=== PATIENT | male | born 1955 | race Caucasian/White ===

== ENCOUNTER → 2017-03-16 | Outpatient (CLI) | payer BC ==
[~2017-03-16] MED LIST: AMLO10 PO; ATEN50TA PO; CALC600T25 PO; DOCU1CAP39 PO; HYDR-3516 PO; HYDR10TA65 PO; LIPI80TA PO; LISI10TA3 PO; LISI40TA PO; MAGN400T24 PO; METH500T3 PO; NEXI40CA PO
[2017-03-16 09:08] LABS: HEMATOCRIT 38.4 % (39.0-51.0); MEAN CELL VOLUME 89.1 FL (80.0-100.0); MEAN CORPUSCULAR HEMOGLOBIN 30.5 PG (27.0-34.0); MEAN CORPUSCULAR HGB CONC 34.2 % (32.0-36.0); PLATELET COUNT 274 TH/MM3 (150-450); RED BLOOD COUNT 4.31 MIL/MM3 (4.50-5.90); RED CELL DISTRIBUTION WIDTH 13.4 % (11.6-17.2); REVIEW FLAG FINAL
[2017-03-16 09:19] LABS: APTT (PATIENT) 26.4 SEC (24.3-30.1)
[2017-03-16 10:04] LABS: BICARBONATE 26.6 MEQ/L (21.0-32.0)
--- NOTE | 2017-03-16 21:16 | EKG ---
Date Performed: 03/16/2017 Time Performed: 08:25:15 PTAGE: 62 years EKG: Sinus rhythm POSSIBLE RIGHT VENTRICULAR CONDUCTION DELAY BORDERLINE ECG NO PREVIOUS TRACING DOCTOR: Anam Luz Interpretating Date/Time 03/16/2017 21:16:17
== END ==
LOC: CPRE 07:58
PROVIDERS: ATTEND Neurological Surgery
DX: Z01.810 Encounter for preprocedural cardiovascular examination (principal); Z01.811 Encounter for preprocedural respiratory examination; Z01.812 Encounter for preprocedural laboratory examination; Z01.818 Encounter for other preprocedural examination; M48.062 Spinal stenosis, lumbar region with neurogenic claudication; M54.16 Radiculopathy, lumbar region; R94.31 Abnormal electrocardiogram [ECG] [EKG]
CPT/HCPCS: 36415; 80048; 85027; 85610; 85730; 93005

== ENCOUNTER 2017-03-19 08:07 | Inpatient (IN) | payer BC ==
[~2017-03-19] VITALS: Ht 177.8 cm; Wt 95.1 kg
[~2017-03-19 08:07] MED LIST changes: -CALC600T25 PO; -DOCU1CAP39 PO; -HYDR-3516 PO; -LISI10TA3 PO; -MAGN400T24 PO; -METH500T3 PO
[2017-03-19] MEDS ORDERED: CHLORHEXIDINE GLUCONATE 2 % 1 PACK (2 CLOTHS) TOPICAL PRN (09:45)
[2017-03-19] MEDS ORDERED: LACTATED RINGER'S 1000 ML IV PRN (09:45)
[2017-03-19] MEDS ORDERED: ceFAZolin 1,000 MG/NS 100 ML IV SCH ×2 (09:45)
[2017-03-19] MEDS ORDERED: SODIUM CHLORID 0.9% 500 ML IV PRN (09:45)
[2017-03-19] MEDS ORDERED: METOPROLOL TARTRATE 25 MG TAB PO PRN (09:45)
[2017-03-19] MEDS ORDERED: INSULIN HUMAN REGULAR 1,000 UNITS/10 ML VIAL SQ PRN (09:45)
[2017-03-19] MEDS ORDERED: POVIDONE IODINE 5% (ANTISEPSIS KIT) 4 APPLICATIONS EACH NARE PRN (09:45)
[2017-03-19] MEDS ORDERED: THROMBIN (TOPICAL) 5,000 UNIT VIAL ONE (10:15)
[2017-03-19] MEDS ORDERED: GELFOAM SIZE 100 ONE (10:15)
[2017-03-19] MEDS ORDERED: LIDOCAINE 2%/EPINEPHrine PF 1:200,000 20ML SDV ONE (10:16)
[2017-03-19] MEDS ORDERED: GENTAMICIN SULFATE 80 MG/2 ML VIAL ONE (10:16)
[2017-03-19] MEDS ORDERED: ACETAMINOPHEN 1000 MG/100 ML 100 ML IV ONE (14:01)
[2017-03-19] MEDS ORDERED: MIDAZOLAM HCL 2 MG/2 ML VIAL ONE (14:02)
[2017-03-19] MEDS ORDERED: methylPREDNISolone SOD SUCC 125 MG/2 ML VIAL ONE (14:03)
[2017-03-19] MEDS ORDERED: FAMOTIDINE 20 MG/2 ML VIAL ONE (14:03)
[2017-03-19] MEDS ORDERED: BUPIVACAINE LIPOSOME PF 1.3% 20 ML VIAL ONE (17:05)
[2017-03-19] MEDS ORDERED: ceFAZolin INJ 1,000 MG VIAL ONE (18:12)
[2017-03-19] MEDS ORDERED: DO NOT ADM ANY ANTICOAGULANT DRUGS PRN (19:38)
--- NOTE | 2017-03-19 19:50 | RADRPT ---
EXAM DATE/TIME: 03/19/2017 15:26 [place] COMPARISON: No previous studies available for comparison. INDICATIONS : Lumbar spine pain Post laminectomy L3-L4 MEDICAL HISTORY : None. SURGICAL HISTORY : None. ENCOUNTER: Initial ACUITY: 1 day PAIN SCORE: Non-responsive. LOCATION: Lumbar spine FINDINGS: Localization marker correlates with what I believe is L4-5.. Visualized lower lumbar spine alignment is satisfactory. CONCLUSION: Localization marker dorsal to L4-5 Gera Peterson MD on March 19, 2017 at 19:47 Board Certified Radiologist. This report was verified electronically.
[2017-03-19 20:00] VITALS: BP 117/78; PULSE 64; RESP 16; TEMP 96.4; O2SAT 94
[2017-03-19] MEDS ORDERED: SODIUM CHLORIDE 0.9% FLUSH 5 ML FLUSH IVF PRN (20:45)
[2017-03-19] MEDS ORDERED: METHOCARBAMOL 500 MG TAB PO PRN (20:45)
[2017-03-19] MEDS ORDERED: NALOXONE HCL 0.4 MG/ML AMP IV PUSH PRN (20:45)
[2017-03-19] MEDS ORDERED: HYDROmorphone HCL PF 1 MG/ML VIAL IV PUSH PRN (20:45)
[2017-03-19] MEDS ORDERED: ACETAMINOPHEN/HYDROcodone 325 MG/10 MG TAB PO PRN (20:45)
[2017-03-19] MEDS ORDERED: ONDANSETRON HCL 4 MG/2 ML VIAL IV PUSH PRN (20:45)
[2017-03-19] MEDS: D5-1/2 NS + KCL 20 MEQ INJ 1,000 ML IV SCH (20:45)
[2017-03-19] MEDS ORDERED: MORPHINE SULFATE 4 MG/ML INJ IV PUSH PRN (20:45)
[2017-03-19] MEDS: DOCUSATE SODIUM 100 MG CAP PO SCH (21:00)
--- NOTE | 2017-03-19 21:09 | PD.OP ---
Operative Report Date of Surgery: Mar 19, 2017 Preoperative Diagnosis: (1) Lumbar canal stenosis (2) Lumbar radiculopathy (3) Synovial cyst of lumbar facet joint 1. Severe L2-3, L3 4, moderate L4 5 canal stenosis 2. L3 4 synovial cyst 3. Left lumbar radiculopathy Postoperative Diagnosis: (1) Lumbar canal stenosis (2) Lumbar radiculopathy (3) Synovial cyst of lumbar facet joint 1. Severe L2-3, L3 4, moderate L4 5 canal stenosis 2. L3 4 synovial cyst 3. Left lumbar radiculopathy Procedure: 1. Bilateral L2-3 and L3 4 decompressive semi-laminectomy 2. Resection L3 4 synovial cyst 3. Left L4 5 decompressive semi-laminectomy Anesthesia: Gen. Surgeon: Yaniv Lo Sludge Filtration Operator(s): Melvi Sahni Operation and Findings: Indications: 62-year-old male with chronic low back pain, severe left lower extremity radicular pain. Preoperative MRI reveals severe L3-4 greater than L2- 3 canal and lateral recess stenosis with L3 4 synovial cyst. Moderate L4 5 canal stenosis with significant lateral recess stenosis impinging on the left L5 nerve root. Intraoperative findings: Severe hypertrophy of the L3 4 greater than L2-3 ligamentum flavum with prominent central to right L3 4 synovial cyst. Significant adhesions along the thecal sac at the bilateral L3 4 and left L4 5 level. Procedure in detail: The patient was brought into the operating room and general endotracheal anesthesia induced without difficulty. KELLIE hose and sequential compression devices were placed. The Rosales catheter was placed. Lines were established by anesthesia. Leads for intraoperative neuro monitoring were placed and a baseline study obtained. The patient was positioned on the concentric Papito table with the side bolsters and all extremities appropriately padded. Appropriate time-out procedure was performed with all personnel present and in agreement. 1% Xylocaine with epinephrine was used for local infiltration over the incision site which was made just to the left of midline at the L2-4 levels. The incision was carried sharply down to the lumbodorsal fascia which was incised adjacent to the spinous processes. Arevalo elevator was used for subperiosteal elevation of paraspinous musculature and fascia away from the lamina and spinous process at the left L 2, L3, and L4 level keeping the muscle and ligament attachments intact to the spinous processes as much as possible at each level. The deep self-retaining retractor was placed. The appropriate levels were verified with intraoperative C-arm. Microscope was moved into place and used for the remainder of the procedure including the closure. At the L2-3 and L3 4 level starting on the left side and then working across the midline to the opposite side, the TPS drill with a 5 mm bone bur followed by the 4 mm mitchel bur was used to remove the inferior two thirds of the more cephalad lamina and the superior aspect of the more caudal lamina along with a moderate amount of the bilateral medial facet, taking care not to disrupt the integrity of the facet or pars intra-articularis. The hypertrophied ligamentum flavum at each level was elevated away from the thecal sac with the thin ligament dissector and resected with the 15 blade knife and the Kerrison rongeur out to the level of the deep lateral recess to completely decompress the thecal sac and exiting nerve roots. At the L3 4 level, the ligamentum flavum was markedly hypertrophied, and the synovial cyst on the right side was elevated along with the ligament with the Poultney dissectors and thin ligament dissectors with further resection with the Kerrison rongeur to remove the synovial cyst and adjacent ligament. There were moderate adhesions noted along the thecal sac at the bilateral L3 4 level. The exiting nerve roots were followed to the level of the medial pedicle to ensure that they were well decompressed. At each level on each side, the superior aspect of the more inferior facet along with hypertrophied ligament at the medial foramen were removed with the Kerrison rongeur to perform the bilateral foraminotomy. At the left L4 5 level, in order to decompress the exiting left L5 nerve root, a left L5 laminotomy was performed with the TPS drill with the 4 mm bone bur. The hypertrophied ligamentum flavum was elevated away from the underlying thecal sac with a thin ligament dissector. There were quite severe adhesions between the ligament and the dura and at some points, a clean dissection plane could not be accomplished, so the ligament was thinned out and the facet and lamina overlying the exiting L5 nerve root removed sufficient to decompress the nerve at the lateral recess. The nerve roots appeared well decompressed at the end of the procedure. No spinal fluid leakage was encountered. The disc and annulus at the L2-3 and L3 4 level was visualized to make sure that there was no significant disc displacement or herniation. Bleeding was carefully controlled with the bipolar forceps. A 7 mm flat fluted drain was left in place at the operative site and brought out through an incision in the mid lumbar region and secured to the skin with nylon suture and attached to a bulb suction. The closure was performed with 0 Vicryl interrupted for the deep and superficial fascia, with 3-0 Vicryl interrupted subcutaneous closure, and 4-0 Vicryl running subcuticular closure. A dressing of sterile Mastisol, Steri- Strips, and Primapore was placed. The patient was taken to recovery room in stable condition. All counts were correct at the end of the case. Estimated blood loss was 200 cc. No specimen was sent to pathology Yaniv Lo MD Mar 19, 2017 21:09
[2017-03-19] MEDS: SODIUM CHLORIDE 0.9% FLUSH 5 ML FLUSH IVF SCH (22:30)
[2017-03-19] MEDS: HYDROmorphone HCL PF 0.5 MG/0.5 ML SYRINGE IV PUSH PRN (22:33)
[2017-03-19 22:38] VITALS: O2SAT 96
[2017-03-20] VITALS: BP 133/76; PULSE 72; RESP 16; TEMP 96.5; O2SAT 99
[2017-03-20 00:47] VITALS: O2SAT 97
[2017-03-20] MEDS: HYDROmorphone HCL PF 0.5 MG/0.5 ML SYRINGE IV PUSH PRN (05:44)
[2017-03-20 06:08] LABS: BICARBONATE 27.1 MEQ/L (21.0-32.0); POTASSIUM 3.9 MEQ/L (3.5-5.1)
[2017-03-20] MEDS: D5-1/2 NS + KCL 20 MEQ INJ 1,000 ML IV SCH (06:34)
[2017-03-20 08:00] VITALS: BP 114/70; PULSE 72; RESP 20; TEMP 95.8; O2SAT 100
[2017-03-20] MEDS: ACETAMINOPHEN/HYDROcodone 325 MG/5 MG TAB PO PRN ×3 (08:58→16:57)
[2017-03-20] MEDS: DOCUSATE SODIUM 100 MG CAP PO SCH (09:00)
[2017-03-20] MEDS: SODIUM CHLORIDE 0.9% FLUSH 5 ML FLUSH IVF SCH (09:00)
--- NOTE | 2017-03-20 11:32 | HHI.NSPN ---
(Rubens Hoyt) History Chief Complaint: Slight pain to lower back. (Rubens Hoyt) Interval History 03/19: The patient presented to [facility] to undergo a decompressive laminectomy due to lumbar stenosis and radiculopathy. Post-operatively the patient was admitted to a regular med/surg floor for further care and monitoring. 03/20: This morning the patient is seen ambulating in his room with a steady gait. He says he feels good. He has some slight pain at the surgical site. He is having neck pain. He denies any numbness, tingling or pain to the lower extremities and intermittent to the upper but none at present. He does report that Nursing did empty his MIGUEL drain once this morning. (Rubens Hoyt) System Review Comments Musculoskeletal: Neck "not doing good today." Some aching to the lower back. Neurological: Intermittent numbness to the upper extremities. The remainder of the ROS is negative. (Rubens Hoyt) Exam Results 03/18/17 03/18/17 03/19/17 03/19/17 03/20/17 03/20/17 06:00 18:00 06:00 18:00 06:00 18:00 Intake Total 2780 ml Output Total 2590 ml Balance 190 ml Intake Oral 480 ml Other 2300 ml Output Urine Total 2350 ml Drainage Total 40 ml Estimated Blood Loss 200 ml # Voids 2 # Bowel Movements 0 Vital Signs Date Time Temp Pulse Resp B/P (MAP) Pulse Ox O2 Delivery O2 Flow Rate FiO2 03/20/17 09:58 18 03/20/17 08:00 95.8 72 20 114/70 (85) 100 03/20/17 00:47 97 03/20/17 00:00 96.5 72 16 133/76 (95) 99 03/19/17 22:38 96 21 03/19/17 21:00 66 18 118/71 (87) 96 Room Air 03/19/17 20:45 61 18 121/69 (86) 95 Room Air 03/19/17 20:30 62 18 123/74 (90) 98 Nasal Cannula 2 03/19/17 20:15 73 18 108/66 (80) 95 Nasal Cannula 2 03/19/17 20:00 65 18 101/62 (75) 96 Nasal Cannula 2 03/19/17 20:00 96.4 64 16 117/78 (91) 94 03/19/17 19:41 98.9 83 18 115/67 (83) 99 Nasal Cannula 4 03/19/17 09:10 97.7 70 20 130/85 (100) 100 (Rubens Hoyt) Physical Examination GENERAL: Patient doing well, affect normal, no apparent distress. SKIN: Warm & dry, intact dressing to lumbar surgical incision, MIGUEL drain to bulb suction w/sanguinous drainage, dressing to drain insertion site w/sanguinous drainage noted, multiple ecchymotic areas & small wounds to extremities of indeterminate ages. HEENT: Normocephalic, atraumatic. NECK: Midline cervical spine TTP, no JVD, trachea midline. CARDIOVASCULAR: S1S2 w/o RRR w/o M/G/R, radial & pedal pulses 2+bilaterally, cap refill < 2 sec, no pedal edema. RESPIRATORY: CTAB w/o W/R/R, equal excursion, nonlaboured, on RA. GASTROINTESTINAL: Abdomen soft, nontender, positive bowel sounds. MUSCULOSKELETAL: WILLIS w/o difficulty, no evident deformity or clubbing. NEUROLOGICAL: AAOx3. Speech clear & appropriate. Follows simple commands w/o difficulty. Sensation intact to light touch to all extremities. Motor strength to all major flexion & extension muscle groups 5/5 except for deltoids which were 4+/5 and hand intrinsics & extrinsics which were not tested. (Rubens Hoyt) Lab, Micro, Other Results Recent Impressions Lumbar Spine X-Ray 03/19/17 0000 Signed Impressions: Service Date/Time: Sunday, March 19, 2017 15:26 - CONCLUSION: Localization marker dorsal to L4-5 Gera Peterson MD Laboratory Tests Test 03/20/17 05:26 Blood Urea Nitrogen 8 MG/DL Creatinine 1.18 MG/DL Random Glucose 137 MG/DL Calcium Level 8.5 MG/DL Sodium Level 133 MEQ/L Potassium Level 3.9 MEQ/L Chloride Level 98 MEQ/L Carbon Dioxide Level 27.1 MEQ/L Anion Gap 8 MEQ/L Estimat Glomerular Filtration Rate 62 ML/MIN (Rubens Hoyt) Medical Decision Making Impression and Plan Impression: Postoperative Diagnosis: (1) Lumbar canal stenosis (2) Lumbar radiculopathy (3) Synovial cyst of lumbar facet joint 1. Severe L2-3, L3 4, moderate L4 5 canal stenosis 2. L3 4 synovial cyst 3. Left lumbar radiculopathy The patient is doing post-operatively and is neurologically intact, improved to BLE. POD #1 () s/p: 1. Bilateral L2-3 and L3 4 decompressive semi-laminectomy 2. Resection L3 4 synovial cyst 3. Left L4 5 decompressive semi-laminectomy Plan: Neuro checks. Monitor MIGUEL drain. Mobilise patient. PT eval & tx. (Rubens Hoyt) Attending Statement The exam, history, and the medical decision-making described in the above note were completed with the assistance of the mid-level provider. I reviewed and agree with the findings presented. I attest that I had a [id number] encounter with the patient on the same day, and personally performed and documented my assessment and findings in the medical record. Patient's neurologic exam stable today. Mild drain output Ambulating with therapy Tolerating diet Stable for discharge home (Yaniv Lo MD) Rubens Hoyt Mar 20, 2017 11:32 Yaniv Lo MD Mar 20, 2017 21:12
[2017-03-20 12:00] VITALS: BP 131/77; PULSE 81; RESP 20; TEMP 97.8; O2SAT 100
[2017-03-20] MEDS ORDERED: METH500T3 PO (13:16)
[2017-03-20] MEDS ORDERED: DOCU1CAP39 PO (13:16)
[2017-03-20] MEDS ORDERED: HYDR-3516 PO (13:16)
--- NOTE | 2017-03-20 15:24 | HHI.DCPOC ---
Discharge Care Plan Your Health Problems Are: Incision/Drains Goals to Promote Your Health * To prevent worsening of your condition and complications * To maintain your health at the optimal level Leave the dressing on over the surgical incisions for 1 week. After that you may take the outer dressing off but leave the steri-strips on and let them fall off on their own. No showering until the surgical incision is totally healed. No lifting, bending, pushing, pulling or other strenuous activity. Wear the LSO brace when out of bed. Take the pain medication as prescribed. Avoid taking any medication that contains aspirin or NSAIDs (ibuprofen, naproxen , Motrin, Advil, Naprosyn) for the next couple weeks. Follow up in the office in 2 weeks for a wound check. Directions to Meet Your Goals Take your medications as prescribed Follow your dietary instruction Follow activity as directed Leave the dressing on over the surgical incisions for 1 week. After that you may take the outer dressing off but leave the steri-strips on and let them fall off on their own. No showering until the surgical incision is totally healed. No lifting, bending, pushing, pulling or other strenuous activity. Wear the LSO brace when out of bed. Take the pain medication as prescribed. Avoid taking any medication that contains aspirin or NSAIDs (ibuprofen, naproxen , Motrin, Advil, Naprosyn) for the next couple weeks. Follow up in the office in 2 weeks for a wound check. Keep your appointments as scheduled Take your immunizations and boosters as scheduled If your symptoms worsen call your PCP, if no PCP go to Urgent Care Center or Emergency Room Smoking is Dangerous to Your Health. Avoid second hand smoke Call the 24-hour hour crisis hotline for domestic abuse at Rubens Hoyt Mar 20, 2017 15:24
--- NOTE | 2017-03-20 15:30 | HHI.DS ---
Discharge Summary Admission Date Mar 20, 2017 at 12:01 Discharge Date: Mar 20, 2017 Admitting Diagnosis (1) Lumbar canal stenosis Diagnosis: Principal ICD Code: M48.061 - Spinal stenosis, lumbar region without neurogenic claudication (2) Synovial cyst of lumbar facet joint Diagnosis: Secondary ICD Code: M71.38 - Other bursal cyst, other site (3) Lumbar radiculopathy Diagnosis: Secondary ICD Code: M54.16 - Radiculopathy, lumbar region Procedures : 1. Bilateral L2-3 and L3 4 decompressive semi-laminectomy 2. Resection L3 4 synovial cyst 3. Left L4 5 decompressive semi-laminectomy CBC/BMP: 03/20/17 0526 Significant Findings Laboratory Tests Test 03/20/17 05:26 Random Glucose 137 MG/DL (74-106) Sodium Level 133 MEQ/L (136-145) Estimat Glomerular Filtration Rate 62 ML/MIN (>89) Hospital Course 03/19: The patient presented to [facility] to undergo a decompressive laminectomy due to lumbar stenosis and radiculopathy. Post-operatively the patient was admitted to a regular med/surg floor for further care and monitoring. 03/20: This morning the patient is seen ambulating in his room with a steady gait. He says he feels good. He has some slight pain at the surgical site. He is having neck pain. He denies any numbness, tingling or pain to the lower extremities and intermittent to the upper but none at present. He does report that Nursing did empty his MIGUEL drain once this morning. Pt Condition on Discharge: Good Discharge Disposition: Discharge Home Discharge Instructions DIET: Follow Instructions for: As Tolerated, No Restrictions ACTIVITIES You can perform: Full Weight Bearing Activities to Avoid: Lifting/Bending, Strenuous Activity, Bathing, Shower, Driving ADDITIONAL Activity Instructio: No showering until the surgical incision is totally healed. No lifting, bending, pushing, pulling or other strenuous activity. Wear the LSO brace when out of bed. Additional Information Leave the dressing on over the surgical incisions for 1 week. After that you may take the outer dressing off but leave the steri-strips on and let them fall off on their own. No showering until the surgical incision is totally healed. Take the pain medication as prescribed. Avoid taking any medication that contains aspirin or NSAIDs (ibuprofen, naproxen , Motrin, Advil, Naprosyn) for the next couple weeks. Follow up in the office in 2 weeks for a wound check. Rubens Hoyt Mar 20, 2017 15:30
[2017-03-20 15:52] VITALS: BP 143/83; PULSE 83; RESP 20; TEMP 97.5; O2SAT 100
== END 2017-03-20 17:59 | disposition home or self-care (01) | DRG 520 ==
LOC: HSDC 08:07 → EDUNIT# 12:00 → N06A 21:13 → OBSVTOIN 03-20 12:01
PROVIDERS: ADMIT Neurological Surgery; ATTEND Neurological Surgery
PROC: 0SB00ZZ Excision of Lumbar Vertebral Joint, Open Approach (ICD-10-PCS; 2017-03-19)
PROC: 01NB0ZZ Release Lumbar Nerve, Open Approach (ICD-10-PCS; principal; 2017-03-19 14:12)
DX: M48.061 Spinal stenosis, lumbar region without neurogenic claudication (principal); M54.16 Radiculopathy, lumbar region; M71.38 Other bursal cyst, other site; I10 Essential (primary) hypertension; E78.5 Hyperlipidemia, unspecified; K21.9 Gastro-esophageal reflux disease without esophagitis; E66.9 Obesity, unspecified; Z68.30 Body mass index [BMI] 30.0-30.9, adult; M54.2 Cervicalgia
CPT/HCPCS: 72020; 76000; 80048; 86850; 86900; 86901; 94150; J1170; C9290; J0131; J0690; J1580; J2250; J2930; J3480; J7120